=== PATIENT | female | born 1985 | race Two or more races ===

== ENCOUNTER 2024-10-22 18:47 | Emergency (ER) | payer MEDICARE, MEDICAID, SELFPAY ==
--- NOTE | 2024-10-22 19:07 | PD.EDADULT ---
ED General RME/HPI General Chief complaint: Psychiatric Symptoms Stated complaint: MENTAL EVAL Time Seen by Provider: 10/22/24 19:14 Arrival date/time: 10/22/24 18:47 Limitations: no limitations RME / HPI RME / HPI narrative: Dr. Espinoza's Main ED Evaluation: 39-year-old female with history of schizophrenia who who is called to the house for refusing to eat for the last few days. Mother of the patient called crisis and they put her on a hold because she refusing to eat or drink get out of bed. They feel that she has now gravely disabled. Upon EMS arrival the patient refused to go. Some Versed was given. No reported fever or trauma. Related Data Home Medications ?Medication ?Instructions ?Recorded ?Confirmed fluoxetine 40 mg capsule 40 mg PO DAILY 02/19/23 12/19/23 nitrofurantoin 100 mg PO QDAY 09/25/23 12/19/23 monohydrate/macrocrystals 100 mg capsule (Macrobid) pravastatin 20 mg tablet 20 mg PO QDAY 09/25/23 12/19/23 levetiracetam 500 mg tablet 500 mg PO BID 12/19/23 12/19/23 prazosin 1 mg capsule 1 mg PO HS 12/19/23 12/19/23 risperidone 1 mg tablet 2 mg PO HS 12/19/23 12/19/23 Allergies Allergy/AdvReac Type Severity Reaction Status Date / Time atorvastatin [From Lipitor] Allergy Severe Hives Verified 09/25/23 13:27 Review of Systems Review of Systems ROS Unobtainable: other (Patient refusing to answer) Past Medical History Past Medical History NEUROLOGIC: Negative Neurological Disorders or Seizures CARDIAC: Positive Cardiac Disorders and Hypercholesterolemia; Negative Congestive Heart Failure or Hypertension RESPIRATORY: Negative Chronic Obstructive Pulmonary Disease (COPD) GASTROINTESTINAL: Positive Gastroesophageal Reflux Disease GENITOURINARY: Negative Genitourinary Disorders or Renal Disease REPRODUCTIVE: Negative Breast Cancer MUSCULOSKELETAL: Negative Musculoskeletal Disorders ENT: Negative Glaucoma ENDOCRINE: Negative Endocrine Disorders, Diabetes Mellitus Type 1 or Diabetes Mellitus Type 2 HEMATOLOGIC: Negative Blood Disorders or Anemia PSYCHO/SOCIAL: Positive Schizophrenia, Bipolar Disorder, Depression and Anxiety OTHER HISTORY: Negative Autoimmune Disease, Falls, Blood Transfusions, Blood Transfusion Reaction, Anesthesia Reactions, Breast Cancer or Cervical Cancer Surgical History SURGICAL: Positive Section; Negative Cardiac Surgery or Abdominal Surgery Social History SMOKING STATUS: Current some day smoker SUBSTANCE USE: does not use ED Exam Narrative Physical exam: Patient laying down appearing General Limitations: Present no limitations General appearance: Present in no apparent distress and other (Disheveled) Head Head exam: Present atraumatic Eye Eye exam: Present normal appearance and EOMI ENT ENT exam: Present normal exam, normal oropharynx and mucous membranes moist Neck Neck exam: Present normal inspection, full ROM and trachea midline Chest Chest inspection: Present normal inspection and symmetric chest wall rise Respiratory Respiratory exam: Present normal lung sounds bilaterally Cardiovascular Cardiovascular exam: Present regular rate, normal rhythm and normal heart sounds Abdominal Exam Abdominal exam: Present soft and normal bowel sounds Extremities Exam Extremities exam: Present normal inspection and full ROM Back Exam Back exam: Present normal inspection and full ROM Neurological Exam Neurological exam: Present other (Oxygen response by opening up her eyes. Follows simple commands) Psychiatric Psychiatric exam: Present normal affect and normal mood Skin Skin exam: Present warm, dry, intact and normal color Course Quality Measures none Orders Category Date Time Status Acetaminophen Stat Lab 10/22/24 19:45 Received Alcohol, Blood Medical Stat Lab 10/22/24 19:45 Received CBC Stat Lab 10/22/24 19:45 Completed Comprehensive Metabolic Panel Stat Lab 10/22/24 19:45 Received Drug Screen,Urine Stat Lab 10/23/24 04:45 Received HCG,Qualitative Serum Stat Lab 10/22/24 19:45 Received Salicylate Stat Lab 10/22/24 19:45 Received Urinalysis Stat Lab 10/23/24 04:45 Completed cefTRIAXone [Rocephin] Med 10/23/24 05:41 Once 1,000 mg IM X1 ONE cefTRIAXone [Rocephin] 1,000 mg Med 10/23/24 05:37 Discontinued Lidocaine 1% 20 ml [Xylocaine 1% 20 ML] 2.1 ml IM X1 Vital Signs Vital signs: Vital Signs Temperature 98.6 F 10/22/24 19:55 Pulse Rate 86 10/22/24 19:55 Respiratory Rate 16 10/22/24 19:55 Blood Pressure 112/73 10/22/24 19:55 Pulse Oximetry (%) 100 10/22/24 19:55 Oxygen Delivery Method Room Air 10/22/24 19:55 [facility] Patient data External records reviewed:: [facility] previous records (Per chart review, patient was seen here on 08/03/24 for chronic schizophrenia.) Clinical information provided by:: patient Social determinants that could affect healthcare access:: none Patient has the following chronic illnesses:: schizophrenia, HLD, GERD How is presenting disease/condition affected by chronic disease/condition?: exacerbated by Evaluation data The following diagnostics were reviewed and interpreted by me:: lab results Lab and/or radiology exams considered but not ordered:: none Interpretation Summary: CBC is normal, UA is positive for a UTI, according to my interpretation. Patient is not yet medically clear and is pending other labs. Medications Medications considered but not ordered:: none Medication administrations:: Medication Administration History Ceftriaxone Sodium (Ceftriaxone Sodium 500 Mg Vial) 1,000 mg IM X1 ONE Stop: 10/23/24 05:42 Discontinued Medications Ceftriaxone Sodium 1,000 mg/ (Lidocaine HCl 2.1 ml) 0 mg IM X1 ONE Stop: 10/23/24 05:38 see above Consultations Consultation(s) initiated? (list below): No Diagnosis Differential Diagnosis ED Complaint MDM: gravely disabled, worsening schizophrenia, dehydration, drug use Most likely diagnosis given after review of the tests above:: see below Admission Indicated Admission indicated?: not indicated Explain why admission is indicated or not indicated:: Admission criteria not met. Admission Request Was there a request for admission?: No Disposition Plan Disposition Plan: other (specify) (Signed out to Dr. Loaiza at 0600 pending crisis evaluation.) Medical Decision Making MDM Narrative MDM Narrative: Differential diagnosis includes gravely disabled, UTI, dehydration, electrolyte abnormality, underlying skin gastric disorder Differential Diagnosis Differential Diagnosis: gravely disabled, worsening schizophrenia, dehydration, drug use Lab Data 10/23/24 04:45 10/23/24 04:45 Labs: Lab Results 10/23/24 Range/Units 04:45 WBC 6.4 (3.6-11.0) Thou/mm3 RBC 5.03 (4.00-5.20) Miln/mm3 Hgb 12.8 (12.0-16.0) g/dL Hct 41.2 (36.0-46.0) % MCV 82 (80-100) fL MCH 25.4 (25.0-35.0) pg MCHC 31.1 (31.0-37.0) g/dl RDW Std Deviation 44.6 (36.4-46.3) fL Plt Count 197 (140-440) Thou/mm3 Neut % (Auto) 44 (37-80) % Lymph % (Auto) 46 (10-50) % [place] % (Auto) 7 (0-12) % Eos % (Auto) 2 (0-10) % Baso % (Auto) 1 (0-2.5) % Neut # (Auto) 2.8 (1.8-7.7) Thou/mm3 Lymph # (Auto) 2.9 (1.0-4.8) Thou/mm3 [place] # (Auto) 0.5 (0.0-0.8) Thou/mm3 Eos # (Auto) 0.2 (0.0-0.5) Thou/mm3 Baso # (Auto) 0.0 (0.0-0.2) Thou/mm3 Immature Gran # (Auto) 0.01 H (0.00-0.00) Thou/mm3 Absolute Nucleated RBC 0.00 (0.00-0.00) Thou/mm3 Immature Gran % 0 (0-0) % Nucleated RBC % 0 (0) /100 WBC Ur Collection Type Catheter Urine Color Yellow (Lt Yel-Yel) Urine Clarity Turbid A (Clear/Hazy) Urine pH 5.5 (5.0-7.0) Ur Specific [place] 1.013 (1.001-1.035) Urine Protein 1+ A (Neg - Trace) Urine Glucose (UA) Negative (Negative) Urine Ketones Negative (Negative) Urine Blood 1+ A (Negative) Urine Nitrite Negative (Negative) Urine Bilirubin Negative (Negative) Urine Urobilinogen (Auto) Negative (0.0-1.0) mg/dL Ur Leukocyte Esterase Positive (Negative) Urine RBC 21 H (0-3) /hpf Urine WBC 427 H (0-5) /hpf Ur Squamous Epith Cells 130 H (0-5) /hpf Urine Bacteria 3+ A (None) Discharge Plan Plan Disposition Comment: Stable at sign out Prescriptions/Referrals Prescriptions/Med Rec: No Action pravastatin 20 mg tablet 20 mg PO QDAY nitrofurantoin monohyd/m-cryst [Macrobid] 100 mg capsule 100 mg PO QDAY fluoxetine 40 mg capsule 40 mg PO DAILY Patient Comments: TAKE 1 CAPSULE BY MOUTH EVERY DAY levetiracetam 500 mg tablet 500 mg PO BID Patient Comments: TAKE 1 TABLET BY MOUTH TWICE A DAY prazosin 1 mg capsule 1 mg PO HS Patient Comments: TAKE 1 CAPSULE BY MOUTH EVERYDAY AT BEDTIME risperidone 1 mg tablet 2 mg PO HS Referrals: No Primary/Family,Physician [Primary Care Provider] - In 1 week Problem List Clinical Impression: Acute psychosis Patient/Caregiver Discharge Instructions Print Language: Samoan
[2024-10-22 19:55] VITALS: BP 112/73; PULSE 86; RESP 16; TEMP 37; O2SAT 100
--- NOTE | 2024-10-23 01:48 | PC.NURSE ---
Pt came in 5150 gravely disabled by crisis, mom called crisis because Pt was refusing to eat, drink, and is urinating all over herself. EMS had to 4 point restrain Pt and give versed to get pt on the gurney, Pt was aggressive and combative. upon ER arrival Pt was calm, however was refusing treatment and all offers by staff to help the Pt. get cleaned up.
[2024-10-23 04:57] VITALS: BP 140/89; PULSE 114; RESP 16; O2SAT 100
[2024-10-23 05:06] LABS: Collection Type, Urine Catheter
[2024-10-23 05:21] LABS: Basophils % (Auto) 1 % (0-2.5); Eosinophils # (Auto) 0.2 Thou/mm3 (0.0-0.5); Eosinophils % (Auto) 2 % (0-10); Hematocrit 41.2 % (36.0-46.0); Hemoglobin 12.8 g/dL (12.0-16.0); Immature Granulocytes % (Auto) 0 % (0-0); Immature Granulocytes Auto 0.01 Thou/mm3 (0.00-0.00); Lymphocytes # (Auto) 2.9 Thou/mm3 (1.0-4.8); Lymphocytes % (Auto) 46 % (10-50); Mean Corpuscular HGB Conc 31.1 g/dl (31.0-37.0); Mean Corpuscular Hemoglobin 25.4 pg (25.0-35.0); Mean Corpuscular Volume 82 fL (80-100); Monocytes # (Auto) 0.5 Thou/mm3 (0.0-0.8); Monocytes % (Auto) 7 % (0-12); Neutrophils # (Auto) 2.8 Thou/mm3 (1.8-7.7); Neutrophils % (Auto) 44 % (37-80); Nucleated Red Blood Cell % 0 /100 WBC (0); Platelet Count 197 Thou/mm3 (140-440); RDW Standard Deviation 44.6 fL (36.4-46.3); Red Blood Count 5.03 Miln/mm3 (4.00-5.20); White Blood Count 6.4 Thou/mm3 (3.6-11.0)
[2024-10-23 05:26] LABS: Bacteria,Urine 3+; Bilirubin,Urine Negative (Negative); Blood,Urine 1+ (Negative); Glucose, Urine Negative (Negative); Ketones,Urine Negative (Negative); Leukocyte Esterase,Urine Positive (Negative); Nitrite,Urine Negative (Negative); PH,Urine 5.5 (5.0-7.0); Protein,Urine 1+ (Neg - Trace); RBC,Urine 21 /hpf (0-3); Specific Gravity,Urine 1.013 (1.001-1.035); Squamous Epithelial Cell,Urine 130 /hpf (0-5); Urobilinogen,Urine Negative mg/dL (0.0-1.0); WBC,Urine 427 /hpf (0-5)
[2024-10-23 05:33] LABS: Clarity,Urine Turbid (Clear/Hazy); Color,Urine Yellow (Lt Yel-Yel)
[2024-10-23 05:48] LABS: HCG,Qualitative Serum Negative
[2024-10-23 05:54] LABS: Amphetamine/Methamp Scrn,U Negative (Negative); Barbiturate Screen,Urine Negative (Negative); Benzodiazepines Screen,Urine Positive (Negative); Benzoylecgonine Screen, Ur Negative (Negative); Fentanyl Screen,Urine Negative (Negative); Opiate Screen,Urine Negative (Negative); THC Screen,Urine Negative (Negative)
--- NOTE | 2024-10-23 06:10 | EDNOTE_ITS ---
Emergency Room Addendum <Cris Duran - Last Filed: 10/23/24 11:50> Addendum Narrative: 0600: Care assumed from Dr. Espinoza, the previous shift emergency physician. Past medical, surgical, social and family history reviewed. Vitals and home medications reviewed. I will assume the care of the patient at this time, pending psychiatric evaluation/placement. Please refer to the emergency department record for history and examination.? The patient was placed in ED observation care at 10/23/2024 at 0600 hours. The patient was placed in ED observation care because of undifferentiated decompensated behavioral health evaluation, no behavioral health bed available. The patients past medical history, social history, and family history were reviewed. The plan of care will include serial examinations. While in ED observation the patient will have access to water, food, and personal hygiene. If the patient takes home medication(s), they will be continued in ED observation. Physical exam by me shows patient under no acute distress at this time. 0712: [facility] placed the patient on a 5150 hold. 1145: Accepted to [facility]. <Wade Loaiza MD - Last Filed: 10/23/24 11:57> Addendum Narrative: 0600: Care assumed from Dr. Espinoza, the previous shift emergency physician. Past medical, surgical, social and family history reviewed. Vitals and home medications reviewed. I will assume the care of the patient at this time, pending psychiatric evaluation/placement. Please refer to the emergency department record for history and examination.? The patient was placed in ED observation care at 10/23/2024 at 0600 hours. The patient was placed in ED observation care because of undifferentiated decompensated behavioral health evaluation, no behavioral health bed available. The patients past medical history, social history, and family history were reviewed. The plan of care will include serial examinations. While in ED observation the patient will have access to water, food, and personal hygiene. If the patient takes home medication(s), they will be continued in ED observation. Physical exam by me shows patient under no acute distress at this time. 0712: [facility] placed the patient on a 5150 hold. 1145: Accepted to [facility]. Diagnosis: Acute psychosis History of schizophrenia Urinary tract infection, currently on Rocephin IM and then Keflex Condition: Stable for transfer
[2024-10-23 06:14] LABS: Acetaminophen < 2.0 mcg/mL (10.0-20.0); Alanine Aminotransferase 449 U/L (10-49); Albumin, Serum 4.6 gm/dL (3.5-5.0); Albumin/Globulin Ratio 1.9 (1.2-2.2); Alcohol, Blood Medical < 3.0 mg/dL (0-10.0); Alkaline Phosphatase 141 U/L (46-116); Anion Gap 12 (7-16); Aspartate Amino Transferase 241 U/L (0-34); BUN/Creatinine Ratio 9 Ratio (12-20); Bilirubin,Total 0.9 mg/dL (0.3-1.2); Blood Urea Nitrogen 7 mg/dL (9-23); Carbon Dioxide 25.8 mMol/L (20.0-31.0); Chloride 102 mMol/L (98-107); Creatinine (Component) 0.8 mg/dL (0.6-1.3); Globulin 2.4 gm/dL (2.3-3.5); Glucose 88 mg/dL (74-106); Osmolality,Calculated 276 (275-295); Salicylate < 3.0 mg/dL; Sodium 140 mMol/L (136-145); eGFR > 60 See Note
[2024-10-23] MEDS: cephALEXin 250 MG CAPSULE 500 MG PO (06:45)
--- NOTE | 2024-10-23 07:04 | PC.CC ---
Patient is a 39 year-old female BIBA on [id number] Gravely Disabled by [facility] Crisis Team-Jessica Thompson. Patient has a history of Schizophrenia she has not been compliant with her medication. Per patient's mother, the patient has lost a significant amount of weight and has been actively hallucinating having delusions. Patient is having delusions of having two children and . Patient has not been able to meet her basic needs. ASW, will be sending referral via [facility] to [facility]. Dr. Loaiza and line ordering clinician made aware of discharge plan to [facility].
--- NOTE | 2024-10-23 07:30 | PC.NURSE ---
in to assess pt. pt resting quietly at this time stating I want to go home with my boyfriend. no complaints reported at this time. pt not complaining of any pain and no signs of distress noted. currently pending placement. plan of care ongoing.
--- NOTE | 2024-10-23 08:00 | PC.NURSE ---
breakfast tray provided.
[2024-10-23 10:45] VITALS: BP 125/67; PULSE 100; RESP 19; TEMP 36.6; O2SAT 98
--- NOTE | 2024-10-23 11:44 | PC.CC ---
Patient was accepted to [facility], by Dr. Sandoval. Dr. Loaiza, medical oncologist Gordon, and SYLWIA Chambers made aware of discharge plan. ASW to arrange transportation. Patient made aware of accepting information.
--- NOTE | 2024-10-23 15:30 | PC.NURSE ---
pt picked up by ems for transport to [facility].
[2024-10-23 15:42] VITALS: BP 125/65; PULSE 80; RESP 18; TEMP 36.6; O2SAT 99
== END 2024-10-23 15:40 | disposition short-term general hospital (02) ==
PROVIDERS: Emergency Medicine; Emergency Provider Emergency Medicine
DX: F20.9 Schizophrenia, unspecified (principal); N39.0 Urinary tract infection, site not specified
CPT/HCPCS: 36415; 80053; 80307; 80320; 80329; 81001; 84703; 85025; 87811; 90839; 96127; 99285; A9270; G0480

== ENCOUNTER 2024-12-03 08:08 | Emergency (ER) | payer MEDICARE, MEDICAID, SELFPAY ==
[2024-12-03 08:10] VITALS: BP 120/81; PULSE 108; PULSE 92; RESP 15; RESP 18; TEMP 36.9; O2SAT 99; BMI 23.8
--- NOTE | 2024-12-03 08:41 | EKG_ITS ---
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
--- NOTE | 2024-12-03 08:41 | PD.EDADULT ---
ED General RME/HPI General Chief complaint: General Adult/Misc Complain Stated complaint: INTOXICATED Time Seen by Provider: 12/03/24 08:45 Source: patient Arrival date/time: 12/03/24 08:08 39-year-old female with no known medical history presents to the emergency room with a chief complaint of chest pain, palpitations. Patient states she is a daily drug user and did methamphetamine last night. Patient states she has not slept. Mode of arrival: ambulatory Limitations: no limitations Related Data Home Medications ?Medication ?Instructions ?Recorded ?Confirmed fluoxetine 40 mg capsule 40 mg PO DAILY 02/19/23 12/19/23 nitrofurantoin 100 mg PO QDAY 09/25/23 12/19/23 monohydrate/macrocrystals 100 mg capsule (Macrobid) pravastatin 20 mg tablet 20 mg PO QDAY 09/25/23 12/19/23 levetiracetam 500 mg tablet 500 mg PO BID 12/19/23 12/19/23 prazosin 1 mg capsule 1 mg PO HS 12/19/23 12/19/23 risperidone 1 mg tablet 2 mg PO HS 12/19/23 12/19/23 Allergies Allergy/AdvReac Type Severity Reaction Status Date / Time atorvastatin (From Lipitor) Allergy Severe Hives Verified 12/03/24 08:21 Review of Systems Review of Systems Systems Reviewed: All systems reviewed, normal except as documented Constitutional Constitutional: Reports system reviewed and no additional complaints, except as documented, Denies fatigue, Denies fever(s), Denies headache(s) and Denies weakness Eyes Eyes: Reports system reviewed and no additional complaints, except as documented, Denies blurry vision and Denies change in vision ENT Ears, Nose, Mouth, and Throat: Reports system reviewed and no additional complaints, except as documented, Denies otalgia, Denies headache(s), Denies nasal congestion, Denies throat swelling and Denies vertigo Cardiovascular Cardiovascular: Reports system reviewed and no additional complaints, except as documented, Reports chest pain, Reports chest pain at rest, Reports chest pain with activity, Denies dyspnea and Denies dyspnea on exertion Respiratory Respiratory: Reports system reviewed and no additional complaints, except as documented, Denies chest congestion, Denies cough, Denies dyspnea, Denies dyspnea on exertion and Denies wheezing Gastrointestinal Gastrointestinal: Reports system reviewed and no additional complaints, except as documented, Denies abdominal pain, Denies cramping, Denies nausea and Denies vomiting Genitourinary Genitourinary: Reports system reviewed and no additional complaints, except as documented Musculoskeletal Musculoskeletal: Reports system reviewed and no additional complaints, except as documented and Denies back pain Integumentary/Breasts Skin/Breast: Reports system reviewed and no additional complaints, except as documented and Denies wounds Neurologic Neurologic: Reports system reviewed and no additional complaints, except as documented, Denies confusion, Denies headache(s), Denies lack of coordination, Denies vertigo and Denies weakness Psychiatric Psychiatric: Reports system reviewed and no additional complaints, except as documented, Denies anxiety, Denies confusion, Denies depression, Denies paranoia, Denies suicidal ideation and Denies tactile hallucinations Endocrine Endocrine: Reports system reviewed and no additional complaints, except as documented and Denies fatigue Hematologic/Lymphatic Hematologic/Lymphatic: Reports system reviewed and no additional complaints, except as documented and Denies lymphadenopathy Allergic/Immunologic Allergic/Immunologic: Reports system reviewed and no additional complaints, except as documented, Denies throat swelling, Denies urticaria and Denies wheezing Past Medical History Past Medical History NEUROLOGIC: Negative Neurological Disorders or Seizures CARDIAC: Positive Cardiac Disorders and Hypercholesterolemia; Negative Congestive Heart Failure or Hypertension RESPIRATORY: Negative Chronic Obstructive Pulmonary Disease (COPD) GASTROINTESTINAL: Positive Gastroesophageal Reflux Disease GENITOURINARY: Negative Genitourinary Disorders or Renal Disease REPRODUCTIVE: Negative Breast Cancer MUSCULOSKELETAL: Negative Musculoskeletal Disorders ENT: Negative Glaucoma ENDOCRINE: Negative Endocrine Disorders, Diabetes Mellitus Type 1 or Diabetes Mellitus Type 2 HEMATOLOGIC: Negative Blood Disorders or Anemia PSYCHO/SOCIAL: Positive Schizophrenia, Bipolar Disorder, Depression and Anxiety OTHER HISTORY: Negative Autoimmune Disease, Falls, Blood Transfusions, Blood Transfusion Reaction, Anesthesia Reactions, Breast Cancer or Cervical Cancer Surgical History SURGICAL: Positive Section; Negative Cardiac Surgery or Abdominal Surgery Social History SMOKING STATUS: Current some day smoker SUBSTANCE USE: does not use ED Exam General Limitations: Present no limitations General appearance: Present alert and in no apparent distress Head Head exam: Present atraumatic Eye Eye exam: Present normal appearance, PERRL and EOMI ENT ENT exam: Present normal exam, normal oropharynx and mucous membranes moist Neck Neck exam: Present normal inspection, full ROM and trachea midline Chest Chest inspection: Present normal inspection and symmetric chest wall rise Respiratory Respiratory exam: Present normal lung sounds bilaterally; Absent respiratory distress, wheezes, stridor, accessory muscle use or prolonged expiratory phase Cardiovascular Cardiovascular exam: Present regular rate, normal rhythm and normal heart sounds; Absent bradycardia, tachycardia or irregular rhythm Abdominal Exam Abdominal exam: Present soft and normal bowel sounds Extremities Exam Extremities exam: Present normal inspection and full ROM Back Exam Back exam: Present normal inspection and full ROM Neurological Exam Neurological exam: Present alert, oriented X3, CN II-XII intact and normal gait Expanded Neurological Exam Patient oriented to: Present person, place and time Speech: Present fluid speech Cranial nerves: Normal: EOM function (II, III, IV, ), facial sensation (V) and facial palsy (VII) Cerebellar function: Present normal gait Motor strength - LUE: 5/5 Motor strength - RUE: 5/5 Motor strength - LLE: 5/5 Motor strength - RLE: 5/5 Coma scale eye opening: spontaneous Coma scale motor response: obeys commands Coma scale verbal response: oriented Coma scale total: 15 Psychiatric Psychiatric exam: Present normal affect and normal mood Skin Skin exam: Present warm, dry, intact and normal color Course Quality Measures none Orders Category Date Time Status EKG (ED ONLY) *Do not use* NOW Care 12/03/24 08:41 Completed EKG (ED Only) Stat Exams 12/03/24 08:41 Draft B-Type Natriuretic Peptide Stat Lab 12/03/24 09:00 Completed CBC Stat Lab 12/03/24 09:00 Completed Comprehensive Metabolic Panel Stat Lab 12/03/24 09:00 Completed Troponin I Stat Lab 12/03/24 09:00 Completed Vital Signs Vital signs: Vital Signs Temperature 98.5 F 12/03/24 08:10 Pulse Rate 92 12/03/24 08:10 Respiratory Rate 15 12/03/24 08:10 Blood Pressure 120/81 12/03/24 08:10 Pulse Oximetry (%) 99 12/03/24 08:10 Oxygen Delivery Method Room Air 12/03/24 08:10 Procedures -ED EKG Interpretation #1: Date of EK12/03/24 Time of EK:51 Rate: 84 Interpretation: Reviewed by me EKG Impression: Normal sinus rhythm Additional EKG comment: EKG shows normal sinus rhythm at [address] deviation MDM Patient data External records reviewed:: [facility] previous records Clinical information provided by:: patient Social determinants that could affect healthcare access:: none Patient has the following chronic illnesses:: No chronic issues How is presenting disease/condition affected by chronic disease/condition?: no chronic disease Evaluation data The following diagnostics were reviewed and interpreted by me:: lab results and radiology exam(s) Lab and/or radiology exams considered but not ordered:: Labs and radiology exams considered and ordered Interpretation Summary: N/A Medications Medications considered but not ordered:: Medication not given Medication administrations:: Medication not given Consultations Consultation(s) initiated? (list below): No Diagnosis Differential Diagnosis ED Complaint MDM: Methamphetamine abuse/arrhythmias/GA/chest pain Most likely diagnosis given after review of the tests above:: Methamphetamine abuse Admission Indicated Admission indicated?: not indicated Explain why admission is indicated or not indicated:: N/A Admission Request Was there a request for admission?: No Disposition Plan Disposition Plan: Discharge Discharge Attestation Discharge Attestation: The patient and all family members were given an opportunity to ask questions and understood the discharge instructions. Discharge instructions specifically effects, indications for sooner follow up or return to the emergency department, and the expected course of current diagnosis. Patient condition: Stable Medical Decision Making MDM Narrative MDM Narrative: 39-year-old female with no known medical history presents to the emergency room with a chief complaint of chest pain, palpitations. Patient states she is a daily drug user and did methamphetamine last night. Patient states she has not slept. Patient is hemodynamically stable and in no apparent distress Neurological examination is within normal limits the patient is alert and oriented x 3. Patient is a GCS of 15. Pupils are PERRLA EOMs are intact the patient has a normal steady gait. Patient states that she is a daily methamphetamine user. Patient is not homeless she lives with her mother. Patient states she has been unable to sleep since yesterday and states she is feeling palpitations. EKG shows normal sinus rhythm at [address] deviation. CBC CMP were completed and were negative for any acute findings. Troponin was negative BNP was negative. Patient was educated to please stop using methamphetamine as this is the cause of her symptoms. Patient was discharged and educated to follow-up with primary care provider and return to the emergency room for any evidence of worsening signs or symptoms Differential Diagnosis Differential Diagnosis: Methamphetamine abuse/arrhythmias/GA/chest pain Lab Data 12/03/24 09:00 12/03/24 09:00 Labs: Lab Results 12/03/24 Range/Units 09:00 WBC 7.6 (3.6-11.0) Thou/mm3 RBC 4.76 (4.00-5.20) Miln/mm3 Hgb 12.4 (12.0-16.0) g/dL Hct 39.3 (36.0-46.0) % MCV 83 (80-100) fL MCH 26.1 (25.0-35.0) pg MCHC 31.6 (31.0-37.0) g/dl RDW Std Deviation 47.1 H (36.4-46.3) fL Plt Count 233 D (140-440) Thou/mm3 Neut % (Auto) 65 (37-80) % Lymph % (Auto) 25 (10-50) % Gaston % (Auto) 7 (0-12) % Eos % (Auto) 2 (0-10) % Baso % (Auto) 1 (0-2.5) % Neut # (Auto) 5.0 (1.8-7.7) Thou/mm3 Lymph # (Auto) 1.9 (1.0-4.8) Thou/mm3 Gaston # (Auto) 0.5 (0.0-0.8) Thou/mm3 Eos # (Auto) 0.1 (0.0-0.5) Thou/mm3 Baso # (Auto) 0.1 (0.0-0.2) Thou/mm3 Immature Gran # (Auto) 0.03 H (0.00-0.00) Thou/mm3 Absolute Nucleated RBC 0.00 (0.00-0.00) Thou/mm3 Immature Gran % 0 (0-0) % Nucleated RBC % 0 (0) /100 WBC Sodium 142 (136-145) mMol/L Potassium 3.9 (3.4-5.1) mMol/L Chloride 106 (98-107) mMol/L Carbon Dioxide 29.5 (20.0-31.0) mMol/L Anion Gap 7 (7-16) BUN 11 (9-23) mg/dL Creatinine 0.7 (0.6-1.3) mg/dL Estim Creat Clear Calc 84.5 (>60) mL/min eGFR > 60 (60 - ) See Note BUN/Creatinine Ratio 16 (12-20) Ratio Glucose 93 (74-106) mg/dL Calculated Osmolality 282 (275-295) Calcium 9.6 (8.3-10.6) mg/dL Corrected Calcium 9.6 (8.5-10.1) mg/dL Total Bilirubin 0.6 (0.3-1.2) mg/dL AST 13 (0-34) U/L ALT 11 (10-49) U/L Alkaline Phosphatase 74 (46-116) U/L Troponin I < 0.002 (0.0-0.045) ng/mL B-Natriuretic Peptide 21 (0-100) pg/mL Total Protein 7.0 (5.7-8.2) gm/dL Albumin 4.5 (3.5-5.0) gm/dL Globulin 2.5 (2.3-3.5) gm/dL Albumin/Globulin Ratio 1.8 (1.2-2.2) Discharge Plan Plan Patient Disposition: HOME (Self Care) Disposition Comment: Stable Prescriptions/Referrals Prescriptions/Med Rec: No Action pravastatin 20 mg tablet 20 mg PO QDAY nitrofurantoin monohyd/m-cryst [Macrobid] 100 mg capsule 100 mg PO QDAY fluoxetine 40 mg capsule 40 mg PO DAILY Patient Comments: TAKE 1 CAPSULE BY MOUTH EVERY DAY levetiracetam 500 mg tablet 500 mg PO BID Patient Comments: TAKE 1 TABLET BY MOUTH TWICE A DAY prazosin 1 mg capsule 1 mg PO HS Patient Comments: TAKE 1 CAPSULE BY MOUTH EVERYDAY AT BEDTIME risperidone 1 mg tablet 2 mg PO HS Referrals: Severo Kemp MD [Primary Care Provider] - In 1 week Problem List Clinical Impression: Methamphetamine abuse, Chest pain, non-cardiac Patient/Caregiver Discharge Instructions Education Materials: Understanding Methamphetamine ..., ED Chest Pain, Noncardiac, ED Drug Abuse Additional Instructions: Please follow-up with your primary care provider in the next 24 to 48 hours. Please stop taking methamphetamine as this is the cause of your symptoms Your cardiac examination today was within normal limits. Your blood work and EKG were within normal limits For any evidence of worsening signs or symptoms return the emergency room immediately Print Language: Upper Sorbian Stand Alone Forms: [facility] Award Info., Patient Portal Info Letter PA/JUAN CARLOS Supervising Physician PA/JUAN CARLOS Supervising Physician: Dr Loaiza
[2024-12-03 09:34] LABS: Basophils # (Auto) 0.1 Thou/mm3 (0.0-0.2); Basophils % (Auto) 1 % (0-2.5); Eosinophils # (Auto) 0.1 Thou/mm3 (0.0-0.5); Eosinophils % (Auto) 2 % (0-10); Hematocrit 39.3 % (36.0-46.0); Hemoglobin 12.4 g/dL (12.0-16.0); Immature Granulocytes % (Auto) 0 % (0-0); Immature Granulocytes Auto 0.03 Thou/mm3 (0.00-0.00); Lymphocytes # (Auto) 1.9 Thou/mm3 (1.0-4.8); Lymphocytes % (Auto) 25 % (10-50); Mean Corpuscular HGB Conc 31.6 g/dl (31.0-37.0); Mean Corpuscular Hemoglobin 26.1 pg (25.0-35.0); Mean Corpuscular Volume 83 fL (80-100); Monocytes # (Auto) 0.5 Thou/mm3 (0.0-0.8); Monocytes % (Auto) 7 % (0-12); Neutrophils % (Auto) 65 % (37-80); Nucleated Red Blood Cell % 0 /100 WBC (0); Platelet Count 233 Thou/mm3 (140-440); RDW Standard Deviation 47.1 fL (36.4-46.3); Red Blood Count 4.76 Miln/mm3 (4.00-5.20); White Blood Count 7.6 Thou/mm3 (3.6-11.0)
--- NOTE | 2024-12-03 09:52 | PC.NURSE ---
Pt. states she wants to go.
[2024-12-03 10:03] LABS: Alanine Aminotransferase 11 U/L (10-49); Albumin, Serum 4.5 gm/dL (3.5-5.0); Albumin/Globulin Ratio 1.8 (1.2-2.2); Alkaline Phosphatase 74 U/L (46-116); Anion Gap 7 (7-16); Aspartate Amino Transferase 13 U/L (0-34); BUN/Creatinine Ratio 16 Ratio (12-20); Bilirubin,Total 0.6 mg/dL (0.3-1.2); Blood Urea Nitrogen 11 mg/dL (9-23); Calcium 9.6 mg/dL (8.3-10.6); Calcium (Corrected) 9.6 mg/dL (8.5-10.1); Carbon Dioxide 29.5 mMol/L (20.0-31.0); Chloride 106 mMol/L (98-107); Creatinine (Component) 0.7 mg/dL (0.6-1.3); Estimated Creatinine Clearance 84.5 mL/min (>60); Globulin 2.5 gm/dL (2.3-3.5); Glucose 93 mg/dL (74-106); Osmolality,Calculated 282 (275-295); Potassium 3.9 mMol/L (3.4-5.1); Sodium 142 mMol/L (136-145); Troponin I < 0.002 ng/mL (0.0-0.045); eGFR > 60 See Note
[2024-12-03 11:11] LABS: B-Type Natriuretic Peptide 21 pg/mL (0-100)
== END 2024-12-03 12:19 | disposition left against medical advice (07) ==
PROVIDERS: Nurse Practitioner Family; Emergency Provider Emergency Medicine; PCP Family Medicine
DX: R07.89 Other chest pain (principal); F15.10 Other stimulant abuse, uncomplicated; R94.31 Abnormal electrocardiogram [ECG] [EKG]; E78.00 Pure hypercholesterolemia, unspecified
CPT/HCPCS: 36415; 80053; 83880; 84484; 85025; 93005; 99283

== ENCOUNTER 2025-03-10 09:50 | Emergency (ER) | payer MEDICARE, MEDICAID, SELFPAY ==
--- NOTE | 2025-03-10 10:24 | PD.EDMEDCL ---
ED Medical Clearance RME/HPI General Chief complaint: Medical Clearance Stated complaint: [facility] CLEARANCE Arrival date/time: 03/10/25 09:50 RME / HPI RME / HPI Narrative: 40 year old female with known history of schizophrenia, psychosis, bipolar disorder, anxiety presents to the ED BIB [facility] for medical clearance for incarceration. Per officers, patient was combative in residential and refused vital signs. Evidently staff at residential are requesting vital signs. While in the ED patient is uncooperative with history or physical examination. No complaints reported. Related Information Home Medications ?Medication ?Instructions ?Recorded ?Confirmed fluoxetine 40 mg capsule 40 mg PO DAILY 02/19/23 12/19/23 nitrofurantoin 100 mg PO QDAY 09/25/23 12/19/23 monohydrate/macrocrystals 100 mg capsule (Macrobid) pravastatin 20 mg tablet 20 mg PO QDAY 09/25/23 12/19/23 levetiracetam 500 mg tablet 500 mg PO BID 12/19/23 12/19/23 prazosin 1 mg capsule 1 mg PO HS 12/19/23 12/19/23 risperidone 1 mg tablet 2 mg PO HS 12/19/23 12/19/23 Allergies Allergy/AdvReac Type Severity Reaction Status Date / Time atorvastatin (From Lipitor) Allergy Severe Hives Verified 03/10/25 10:35 Review of Systems Review of Systems ROS Unobtainable: unobtainable due to mental status (patient uncooperative ) Past Medical History Past Medical History CARDIAC: Positive Cardiac Disorders and Hypercholesterolemia GASTROINTESTINAL: Positive Gastroesophageal Reflux Disease PSYCHO/SOCIAL: Positive Schizophrenia, Bipolar Disorder, Depression and Anxiety Surgical History SURGICAL: Positive Section; Negative Cardiac Surgery or Abdominal Surgery Social History SMOKING STATUS: Current some day smoker SUBSTANCE USE: does not use ED Exam Narrative Physical exam: GENERAL APPEARANCE:? alert, well-developed, well-nourished, uncooperative HEENT: normocephalic, atraumatic NECK: supple LUNGS: no respiratory distress, normal effort HEART: good peripheral perfusion ABDOMEN: non distended EXTREMITIES:? atraumatic NEUROLOGIC: awake;; cranial nerves II-XII grossly intact PSYCHIATRIC:? uncooperative SKIN: warm, dry, normal color; no rashes Course Quality Measures none Orders Category Date Time Status Sterile Water Med 03/10/25 10:30 Discontinued 1.2 ml IM X1 ONE Ziprasidone Inj [Geodon Inj] Med 03/10/25 10:30 Discontinued 20 mg IM X1 ONE Vital Signs Vital signs: Vital Signs Temperature 98 F 03/10/25 11:01 Pulse Rate 92 03/10/25 11:01 Respiratory Rate 20 03/10/25 11:01 Blood Pressure 111/78 03/10/25 11:01 Pulse Oximetry (%) 99 03/10/25 11:01 Oxygen Delivery Method Room Air 03/10/25 11:01 Medical Clearance MDM Narrative MDM Narrative:: Carline Potts am scribing for and in the presence of Dr. Borden. Patient data External records reviewed:: [facility] previous records (I reviewed ED visit on 12/03/2024 ) Clinical information provided by:: law enforcement Social determinants that could affect healthcare access:: mental health Patient has the following chronic illnesses:: schizophrenia How is presenting disease/condition affected by chronic disease/condition?: exacerbated by Evaluation data The following diagnostics were reviewed and interpreted by me:: other (specify) (No diagnostics ordered ) Lab and/or radiology exams considered but not ordered:: None Interpretation Summary: N/A Medications / Prescriptions Medications or Prescriptions considered but not ordered:: None Medication administrations:: Medication Administration History Discontinued Medications Sterile Water (Water, Sterile Inj 10 Ml Vial) 1.2 ml IM X1 ONE Stop: 03/10/25 10:31 Last Admin: 03/10/25 11:19 Dose: 1.2 ml Documented By: CRISTINA Ziprasidone (Ziprasidone Inj 20 Mg/Ml Vial (Non-Formulary)) 20 mg IM X1 ONE Stop: 03/10/25 10:31 Last Admin: 03/10/25 11:19 Dose: 20 mg Documented By: CRISTINA See above Consultations Consultation(s) initiated? (list below): No Diagnosis Medical Clearance Differential Diagnosis: other (exacerbation of schizophrenia, exacerbation of bipolar disorder, agitated behavior ) Most likely diagnosis given after review of the tests above:: schizophrenia Admission Indicated Admission indicated?: not indicated Explain why admission is indicated or not indicated:: Does not meet admission criteria Admission Request Was there a request for admission?: No Disposition Plan Disposition Plan: Discharge (to residential ) Discharge Attestation Discharge Attestation: The patient and all family members were given an opportunity to ask questions and understood the discharge instructions. Discharge instructions specifically effects, indications for sooner follow up or return to the emergency department, and the expected course of current diagnosis. Patient condition: Stable Discharge Plan Plan Patient Disposition: Detention/Court/Law Prescriptions/Referrals Prescriptions/Med Rec: No Action pravastatin 20 mg tablet 20 mg PO QDAY nitrofurantoin monohyd/m-cryst [Macrobid] 100 mg capsule 100 mg PO QDAY fluoxetine 40 mg capsule 40 mg PO DAILY Patient Comments: TAKE 1 CAPSULE BY MOUTH EVERY DAY levetiracetam 500 mg tablet 500 mg PO BID Patient Comments: TAKE 1 TABLET BY MOUTH TWICE A DAY prazosin 1 mg capsule 1 mg PO HS Patient Comments: TAKE 1 CAPSULE BY MOUTH EVERYDAY AT BEDTIME risperidone 1 mg tablet 2 mg PO HS Problem List Clinical Impression: Schizophrenia Patient/Caregiver Discharge Instructions Education Materials: ED Schizophrenia, General Print Language: Macedonian
[2025-03-10 10:34] VITALS: BMI 19.5
[2025-03-10 11:01] VITALS: BP 111/78; PULSE 92; RESP 20; TEMP 36.6; O2SAT 99
[2025-03-10] MEDS: WATER, STERILE INJ 10 ML VIAL 1.2 ML IM (11:19)
[2025-03-10] MEDS: ZIPRASIDONE INJ 20 MG/ML VIAL (NON-FORMULARY) IM (11:19)
== END 2025-03-10 11:53 ==
PROVIDERS: Emergency Provider Family Medicine
DX: Z02.89 Encounter for other administrative examinations (principal); F20.9 Schizophrenia, unspecified
CPT/HCPCS: 96372; 99283; A4216; J3486

== ENCOUNTER 2025-10-08 10:35 | Emergency (ER) | payer MEDICARE, MEDICAID, SELFPAY ==
--- NOTE | 2025-10-08 10:51 | EDNOTE_ITS ---
ED Recheck Abnl Lab Rx-RME/HPI General Chief Complaint: General Adult/Misc Complain Stated Complaint: needs prescriptions, hearing voices Time Seen by Provider: 10/08/25 10:50 Arrival date/time: 10/08/25 10:35 RME / JENNIFER GARCIA complaint: medication refill request RMAndres / HPI narrative: See [facility] for Dr. Zuluaga's HPI Documentation. Related Data Home Medications ?Medication ?Instructions ?Recorded ?Confirmed fluoxetine 40 mg capsule 40 mg PO DAILY 02/19/2311/12 nitrofurantoin 100 mg PO QDAY 09/25/2311/12 monohydrate/macrocrystals 100 mg capsule (Macrobid) pravastatin 20 mg tablet 20 mg PO QDAY 09/25/2312/18 levetiracetam 500 mg tablet 500 mg PO BID 12/19/2311/12 prazosin 1 mg capsule 1 mg PO HS 12/19/23 12/19/23 risperidone 1 mg tablet 2 mg PO HS 12/19/23 12/19/23 Previous Rx's ?Medication ?Instructions ?Recorded fluoxetine 40 mg capsule 40 mg PO QDAY #30 caps 10/08 metformin 500 mg tablet,extended 500 mg PO QDAY #30 ta bs 10/08/25 release 24 hr (Glucophage XR) olanzapine 5 mg tablet (Zyprexa) 5 mg PO QDAY #30 tabs 10/08/25 Allergies Allergy/AdvReac Type Severity Reaction Status Date / Time atorvastatin (From Lipitor) Allergy Severe Hives Verified 10/08/25 10:42 Review of Systems Review of Systems Systems Reviewed: All systems reviewed, normal except as documented Past Medical History Past Medical History CARDIAC: Positive Cardiac Disorders and Hypercholesterolemia GASTROINTESTINAL: Positive Gastroesophageal Reflux Disease ENDOCRINE: Positive Diabetes Mellitus Type 2 PSYCHO/SOCIAL: Positive Schizophrenia, Bipolar Disorder, Depression and Anxiety Surgical History SURGICAL: Positive Section Social History SMOKING STATUS: Current every day smoker ED Exam Narrative Physical exam: See [facility] for Dr. Zuluaga's Physical Exam Documentation. Course Quality Measures none Orders Category Date Time Status Glucose [Bedside Blood Glucose] NOW Care 10/08/25 10:50 Completed Vital Signs Vital signs: Vital Signs Temperature 98.2 F 12/20/25 10:52 Pulse Rate 98 10/08/25 10:52 Respiratory Rate 18 10/08/25 10:52 Blood Pressure 131/75 H 10/08/25 10:52 Pulse Oximetry (%) 96 10/08/25 10:52 Oxygen Delivery Method Room Air 10/08/25 10:52 Recheck / Abnormal Lab / Rx MDM Narrative MDM Narrative:: This section includes all my notes and documentations, including HPI, PE, and ED course. Jerome Zuluaga MD HPI: 40 y/o female with Type II DM, Schizophrenia, Bipolar Disorder, Depression and Anxiety here requesting prescriptions for Metformin and Prozac and Zyprexa. Was released from long term few days ago and doesn't have those meds. No thoughts of hurting herself or others. No hallucinations. No chest pain or shortness of breath. No other complaints. ROS: All negative except as documented in HPI. Physical Exam: General: Alert and oriented. No acute distress when remaining still. Eyes: Conjunctivae and lids clear. ENT: No nasal congestion. Neck: Supple. Heart: RRR. Lungs: No respiratory distress. Good air movement. No rhonchi, wheezing, rales. Abdomen: Soft and nontender. Normal bowel sounds. No distension. No rebound or guarding. Back: No CVA tenderness. Skin: Warm and dry. Neuro: Alert and oriented X 3. Patient declined all diagnostic tests. Discussed potential risks, including missing serious conditions. Patient understood the risks and is willing to take the risks. We couldn't change his mind. At this point, diagnoses include: Encounter for Medication Refill Recommended outpatient care. Based on my best medical judgment, made decision no further evaluation or treatment indicated at this time. Patient understands and agrees to the discharge instructions customized and printed, see below. Discharge Instructions from Dr. Zuluaga: 1. As you requested, prescriptions for Zyprexa and fluoxetine and metformin were sent to your pharmacy. 2. You don't meet the criteria for emergency fci in psychiatric unit against your will.? Because you have no thoughts of hurting yourself or others.? And there are no signs of psychosis (loss of touch with reality) which can potentially be harmful to you and others. 3. See a private doctor on 10/08/2025 for recheck and further care. Ask to help you stay healthy both physically and mentally.? And help to receive all services available to you, including referral to see mental health specialists. 4. Seek immediate medical care (you can call 911 any time) with thoughts of hurting yourself or with any concerns. Jerome Zuluaga MD Patient data External records reviewed:: [facility] previous records (Reviewed prior ED records from 03/10/25. Patient was seen for Schizophrenia.) Clinical information provided by:: patient Social determinants that could affect healthcare access:: mental health Patient has the following chronic illnesses:: Hypercholesterolemia, Type II DM, Gastroesophageal Reflux Disease, Schizophrenia, Bipolar Disorder, Depression and Anxiety How is presenting disease/condition affected by chronic disease/condition?: exacerbated by Evaluation data The following diagnostics were reviewed and interpreted by me:: other (specify) (Patient declined all diagnostic tests.) Lab and/or radiology exams considered but not ordered:: None Interpretation Summary: Patient declined all diagnostic tests. Discussed potential risks, including missing serious conditions. Patient understood the risks and is willing to take the risks. We couldn't change his mind. Medications / Prescriptions Medications or Prescriptions considered but not ordered:: None Medication administrations:: None Consultations Consultation(s) initiated? (list below): No Diagnosis Recheck Differential Diagnosis: encounter for medication refill and other (Hyperglycemia, Psychosis) Most likely diagnosis given after review of the tests above:: Encounter for Medication Refill Admission Indicated Admission indicated?: not indicated Explain why admission is indicated or not indicated:: With no condition needing emergent intervention, there was no indication for admission. Admission Request Was there a request for admission?: No Disposition Plan Disposition Plan: Discharge Discharge Attestation Discharge Attestation: The patient and all family members were given an opportunity to ask questions and understood the discharge instructions. Discharge instructions specifically effects, indications for sooner follow up or return to the emergency department, and the expected course of current diagnosis. Patient condition: Stable Discharge Plan Plan Patient Disposition: HOME (Self Care) Prescriptions/Referrals Prescriptions/Med Rec: New fluoxetine 40 mg capsule 40 mg PO QDAY Qty: 30 0RF metformin [Glucophage XR] 500 mg tablet extended release 24 hr 500 mg PO QDAY Qty: 30 0RF olanzapine [Zyprexa] 5 mg tablet 5 mg PO QDAY Qty: 30 0RF No Action pravastatin 20 mg tablet 20 mg PO QDAY nitrofurantoin monohyd/m-cryst [Macrobid] 100 mg capsule 100 mg PO QDAY fluoxetine 40 mg capsule 40 mg PO DAILY Patient Comments: TAKE 1 CAPSULE BY MOUTH EVERY DAY levetiracetam 500 mg tablet 500 mg PO BID Patient Comments: TAKE 1 TABLET BY MOUTH TWICE A DAY prazosin 1 mg capsule 1 mg PO HS Patient Comments: TAKE 1 CAPSULE BY MOUTH EVERYDAY AT BEDTIME risperidone 1 mg tablet 2 mg PO HS Referrals: Tatyana Rogers, [employer] [Primary Care Provider] - In 1 week Problem List Clinical Impression: Encounter for medication refill Patient/Caregiver Discharge Instructions Discharge Activity: activity as tolerated Education Materials: ED Diabetes- Overview, ED Depression, ED Schizoaffective Disorder Additional Instructions: Discharge Instructions from Dr. Zuluaga: 1. As you requested, prescriptions for Zyprexa and fluoxetine and metformin were sent to your pharmacy. 2. You don't meet the criteria for emergency fci in psychiatric unit against your will.? Because you have no thoughts of hurting yourself or others.? And there are no signs of psychosis (loss of touch with reality) which can potentially be harmful to you and others. 3. See a private doctor on 10/08/2025 for recheck and further care. Ask to help you stay healthy both physically and mentally.? And help to receive all services available to you, including referral to see mental health specialists. 4. Seek immediate medical care (you can call 911 any time) with thoughts of hurting yourself or with any concerns. Print Language: Kosovan Stand Alone Forms: [facility] Award Info., Patient Portal Info Letter
[2025-10-08 10:52] VITALS: BP 131/75; PULSE 98; RESP 18; TEMP 36.8; O2SAT 96; BMI 24.7
== END 2025-10-08 11:29 | disposition home or self-care (01) ==
PROVIDERS: Emergency Provider Emergency Medicine; PCP Nurse Practitioner Women's Health
DX: Z76.0 Encounter for issue of repeat prescription (principal); F20.9 Schizophrenia, unspecified; F31.9 Bipolar disorder, unspecified; F41.9 Anxiety disorder, unspecified
CPT/HCPCS: 99281